=== PATIENT | female | born 1995 | race Caucasian/White ===

== ENCOUNTER 2016-05-15 21:25 | Inpatient (IN) | payer MEDICAID ==
[2016-05-15 23:01] LABS: CHLORIDE,CL 90 mmol/L (101-111); SODIUM,NA 125 mmol/L (135-145)
[2016-05-15] MEDS ORDERED: Albuterol 0.083% 2.5 MG/3 ML Neb Soln NEB ONE (23:44)
[2016-05-15] MEDS ORDERED: cefTRIAXone 1 GM in Sodium Chloride 0.9% 100 ML IV ONE (23:54)
[2016-05-16] MEDS ORDERED: Piperacillin/Tazobactam 3.375 GM in Sodium Chloride 0.9% 100 ML IV ONE (00:01)
[2016-05-16] MEDS ORDERED: Albuterol 0.083% 2.5 MG/3 ML Neb Soln NEB PRN (00:43)
[2016-05-16] MEDS ORDERED: Sodium Chloride 0.9% 10 ML Syringe FLUSH PRN (00:43)
[2016-05-16] MEDS ORDERED: Sodium Chloride 0.9% 1,000 ML IV ONE (00:44)
[2016-05-16] MEDS ORDERED: Levofloxacin/Dextrose 5%-Water 750 MG in Premix Bag 1 BAG IV SCH (00:45)
--- NOTE | 2016-05-16 01:01 | EDM.PDOC ---
ED HISTORY OF PRESENT ILLNESS - General Chief Complaint: Respiratory Problem Stated Complaint: FLEM,HARD TIME BREATHING O2 STATS LOW Time Seen by Provider: 05/15/16 21:35 Source of Information: Reports: Other (staff caregiver) - History of Present Illness INITIAL COMMENTS - FREE TEXT/NARRATIVE: ED via ambulance from [facility] . Patient repoted to have decreased oxygen levels today, more phlegm production. Suctioned paproximately 60cc this afternoon after using CPT machine. No recent fevers. Patient develpmentally disabled, minimal cmmunication skills Has not been responding to much this barry. Hx hydrocephaly, CP, seizure disorder, baclofen pump, Gtube, scoliosis with full spinal rods. - Related Data Allergies/ADRs: Allergies Allergy/AdvReac Type Severity Reaction Status Date / Time chloral hydrate Allergy Cannot Verified 05/15/16 21:58 Remember codeine Allergy Cannot Verified 05/15/16 21:58 Remember lactose-reduced food Allergy Cannot Verified 05/15/16 21:58 [From PediaSure] Remember pediatric nutrition with Allergy Cannot Verified 05/15/16 21:58 iron, lactose free Remember [From PediaSure] Home Meds: Home Meds Baclofen 15 ml PO Q4H PRN 05/15/16 [History] Baclofen [Lioresal Intrathecal] 275 mcg IT DAILY 05/15/16 [History] Cholecalciferol (Vitamin D3) [Vitamin D3] 2,000 units GTUBE DAILY 05/15/16 [ History] Diazepam 7.5 mg GTUBE ASDIRECTED PRN 05/15/16 [History] Lacosamide [Vimpat] 100 mg GTUBE BID 05/15/16 [History] Lanolin/Min Oil/NaCl/Pet,Wh [Lubriderm Daily Moisture Lotion] 0 ml TOP ASDIRECTED 05/15/16 [History] Levalbuterol HCl [Xopenex] 1.25 mg NEB ASDIRECTED PRN 05/15/16 [History] Levothyroxine Sodium [Levoxyl] 50 mcg GTUBE DAILY 05/15/16 [History] Mineral Oil/Petrolatum,White [Lubrifresh Pm Eye Ointment] 0.25 inch OP BEDTIME 05/15/16 [History] Polyethylene Glycol 3350 [Miralax] 17 gm GTUBE DAILY 05/15/16 [History] Potassium Chloride 20 meq GTUBE DAILY 05/15/16 [History] Propylene Glycol/Peg 400 [Systane 0.3-0.4% Eye Drops] 2 drop OP QID 05/15/16 [ History] levETIRAcetam [Levetiracetam] 600 mg GTUBE BID 05/15/16 [History] Past Medical History Respiratory History: Reports: Other (see below) Other Respiratory History: CPAP full mask at night. CPT vest. cough assist Gastrointestinal History: Reports: Chronic constipation, Other (see below) Other Gastrointestinal History: esophageal reflux Neurological History: Reports: Seizure, Other (see below) Other Neuro History: hydrocephalus Psychiatric History: Reports: Other (see below) Other Psychiatric History: profound intellectual disabilities, profound mental retardation Endocrine/Metabolic History: Reports: Hypothyroidism - Past Surgical History Neurological Surgical History: Reports: Scoliosis Social & Family History - Tobacco Use Smoking Status *Q: Never Smoker - Recreational Drug Use Recreational Drug Use: No ED ROS GENERAL - Review of Systems Review Of Systems: See Below Constitutional: Reports: malaise HEENT: Reports: No symptoms Respiratory: Reports: cough, sputum Cardiovascular: Reports: No symptoms GI/Abdominal: Reports: No symptoms : Reports: no symptoms Musculoskeletal: Reports: no symptoms Skin: Reports: no symptoms Neurological: Reports: no symptoms ED EXAM, GENERAL - Physical Exam Exam: See Below Exam Limited By: Physical impairment General Appearance: alert, mild distress Eye Exam: bilateral eye: EOMI Ears: normal external exam Nose: normal inspection Throat/Mouth: Normal inspection Head: atraumatic, normocephalic Neck: normal inspection Respiratory/Chest: decreased breath sounds, crackles (bilateral bases. diminished respiratory effort, thick green phlegm in mouth), other (sats drop low 80's room iar, increas 10L per mask 97%) Cardiovascular: normal peripheral pulses, regular rate, rhythm GI/Abdominal: normal bowel sounds Back Exam: decreased range of motion, muscle spasm Extremities: other (contracures upper and lower) Neurological: other (abnormal shaping on head. ) Skin Exam: Warm, Dry, Pallor Course - Vital Signs Last Recorded V/S: Last Vital Signs Temp 95.8 F 05/15/16 21:33 Pulse 52 L 05/15/16 21:33 Resp 28 H 05/15/16 21:33 BP 90/63 05/15/16 21:52 Pulse Ox 79 L 05/15/16 21:43 - Orders/Labs/Meds Orders: Active Orders 24 hr Category Date Time Status RT Aerosol Therapy [RC] ASDIRECTED Care 05/15/16 23:45 Active BASIC METABOLIC PANEL,BMP [CHEM] AM Lab 05/16/16 05:11 Ordered BASIC METABOLIC PANEL,BMP [CHEM] AM Lab 05/17/16 05:11 Ordered CBC WITH AUTO DIFF [HEME] AM Lab 05/16/16 05:11 Ordered CBC WITH AUTO DIFF [HEME] AM Lab 05/17/16 05:11 Ordered CULTURE BLOOD [BC] Stat Lab 05/15/16 22:19 Results CULTURE BLOOD [BC] Stat Lab 05/15/16 22:25 Results CULTURE SPUTUM + SMEAR [RM] Stat Lab 05/16/16 00:39 Uncollected UA W/MICROSCOPIC [URIN] Stat Lab 05/15/16 23:45 Uncollected Lacosamide [Vimpat] Med 05/16/16 09:00 Active 100 mg GTUBE BID Levofloxacin/Dextrose 5%-Water [Levaquin in D5W 750 MG/ Med 05/16/16 00:45 Active 150 ML] 750 mg Premix Bag 1 bag IV DAILY Levothyroxine [Synthroid] Med 05/16/16 09:00 Active 50 mcg GTUBE DAILY Mineral Oil/Petrolatum,White [Lubrifresh Pm Eye Med 05/16/16 21:00 Active Ointment] 0.25 inch OP BEDTIME Piperacillin/Tazobactam [Zosyn] 3.375 gm Med 05/16/16 07:00 Active Sodium Chloride 0.9% [Normal Saline] 100 ml IV Q6H Polyethylene Glycol 3350 [MiraLAX] Med 05/16/16 09:00 Active 17 gm GTUBE DAILY Potassium Chloride [Potassium Chloride Solution] Med 05/16/16 09:00 Active 20 meq GTUBE DAILY levETIRAcetam [Levetiracetam] Med 05/16/16 09:00 Active 600 mg GTUBE BID Blood Culture x2 Reflex Set [OM.PC] Stat Oth 05/15/16 21:51 Ordered Code Status [Resuscitation Status] Stat Resus Stat 05/16/16 00:02 Ordered Medication Orders Acetaminophen (Tylenol) 650 mg RECTAL Q4H PRN PRN Reason: Pain (mild 1-3) Last Admin: 05/16/16 01:53 Dose: 650 mg Albuterol (Proventil Neb Soln) 2.5 mg NEB Q2H PRN PRN Reason: shortness of breath/wheezing Albuterol/Ipratropium (Duoneb 3.0-0.5 Mg/3 Ml) 3 ml NEB QID COLE Enoxaparin Sodium (Lovenox) 30 mg SUBCUT DAILY COLE Sodium Chloride (Normal Saline) 1,000 mls @ 125 mls/hr IV .BOLUS ONE Stop: 05/16/16 08:43 Levofloxacin/Dextrose 750 mg/ (Premix) 150 mls @ 100 mls/hr IV DAILY COLE Piperacillin Sod/Tazobactam (Sod 3.375 gm/ Sodium Chloride) 100 mls @ 200 mls/ hr IV Q6H COLE Levothyroxine Sodium (Synthroid) 50 mcg GTUBE DAILY COLE Non-Formulary Medication (Lacosamide [Vimpat]) 100 mg GTUBE BID COLE Non-Formulary Medication (Mineral Oil/Petrolatum,White [Lubrifresh Pm Eye Ointment]) 0.25 inch OP BEDTIME COLE Non-Formulary Medication (Levetiracetam [Levetiracetam]) 600 mg GTUBE BID COLE Polyethylene Glycol (Miralax) 17 gm GTUBE DAILY COLE Potassium Chloride (Potassium Chloride Solution) 20 meq GTUBE DAILY COLE Sodium Chloride (Saline Flush) 10 ml FLUSH ASDIRECTED PRN PRN Reason: Keep Vein Open Labs: Laboratory Tests 05/15/16 05/15/16 05/15/16 Range/Units 22:25 22:25 22:25 WBC 10.9 H (5.0-10.0) 10^3/uL RBC 4.78 (4.2-5.4) 10^6/uL Hgb 14.6 (12.0-16.0) g/dL Hct 41.5 (37.0-47.0) % MCV 86.8 (80-100) fL MCH 30.5 (27.0-34.0) pg MCHC 35.2 H (33.0-35.0) g/dL Plt Count 103 L (150-450) 10^3/uL Neut % (Auto) 91.6 H (42.2-75.2) % Lymph % (Auto) 4.8 L (20.5-50.1) % [place] % (Auto) 3.5 (2-8) % Eos % (Auto) 0.0 L (1.0-3.0) % Baso % (Auto) 0.1 (0.0-1.0) % Sodium 125 L (135-145) mmol/L Potassium 4.5 (3.6-5.0) mmol/L Chloride 90 L (101-111) mmol/L Carbon Dioxide 25.0 (21.0-31.0) mmol/L Anion Gap 14.5 BUN 8 (7-18) mg/dL Creatinine 0.4 L (0.6-1.3) mg/dL Est Cr Clr Drug Dosing TNP Estimated GFR (MDRD) > 60 BUN/Creatinine Ratio 20.00 Glucose 133 H (74-105) mg/dL Lactic Acid 1.9 (0.5-2.2) mmol/L Calcium 9.4 (8.4-10.2) mg/dl Total Bilirubin 0.3 (0.2-1.0) mg/dL AST 42 (10-42) IU/L ALT 59 (10-60) IU/L Alkaline Phosphatase 122 H (42-121) IU/L Total Protein 6.4 L (6.7-8.2) g/dl Albumin 2.7 L (3.2-5.5) g/dl Globulin 3.7 Albumin/Globulin Ratio 0.73 Meds: Medications Generic Name Dose Route Start Last Admin Trade Name Freq PRN Reason Stop Dose Admin Acetaminophen 650 mg 05/16/16 00:43 05/16/16 01:53 Tylenol RECTAL 650 mg Q4H PRN Administration Pain (mild 1-3) Albuterol 2.5 mg 05/16/16 00:43 Proventil Neb Soln NEB Q2H PRN shortness of breath/wheezing Albuterol/Ipratropium 3 ml 05/16/16 09:00 Duoneb 3.0-0.5 Mg/3 Ml NEB QID COLE Enoxaparin Sodium 30 mg 05/16/16 09:00 Lovenox SUBCUT DAILY COLE Sodium Chloride 1,000 mls @ 125 mls/hr 05/16/16 00:44 Normal Saline IV 05/16/16 08:43 .BOLUS ONE Levofloxacin/Dextrose 750 mg/ 150 mls @ 100 mls/hr 05/16/16 00:45 Premix IV DAILY COLE Piperacillin Sod/Tazobactam 100 mls @ 200 mls/hr 05/16/16 07:00 Sod 3.375 gm/ Sodium Chloride IV Q6H COLE Levothyroxine Sodium 50 mcg 05/16/16 09:00 Synthroid GTUBE DAILY COLE Non-Formulary Medication 100 mg 05/16/16 09:00 Lacosamide [Vimpat] GTUBE BID COLE Non-Formulary Medication 0.25 inch 05/16/16 21:00 Mineral Oil/Petrolatum,White [Lubrifresh Pm Eye Ointment] OP BEDTIME COLE Non-Formulary Medication 600 mg 05/16/16 09:00 Levetiracetam [Levetiracetam] GTUBE BID COLE Polyethylene Glycol 17 gm 05/16/16 09:00 Miralax GTUBE DAILY COLE Potassium Chloride 20 meq 05/16/16 09:00 Potassium Chloride Solution GTUBE DAILY COLE Sodium Chloride 10 ml 05/16/16 00:43 Saline Flush FLUSH ASDIRECTED PRN Keep Vein Open Discontinued Medications Generic Name Dose Route Start Last Admin Trade Name Freq PRN Reason Stop Dose Admin Acetaminophen 650 mg 05/16/16 01:36 05/16/16 01:41 Tylenol PO 05/16/16 01:37 Not Given NOW ONE Albuterol 2.5 mg 05/15/16 23:44 05/16/16 00:05 Proventil Neb Soln NEB 05/15/16 23:45 2.5 mg ONETIME ONE Administration Ceftriaxone Sodium 1 gm/ 100 mls @ 200 mls/hr 05/15/16 23:54 05/16/16 00:06 Sodium Chloride IV 05/16/16 00:00 Not Given ONETIME ONE Piperacillin Sod/Tazobactam 100 mls @ 200 mls/hr 05/16/16 00:01 05/16/16 00: 16 Sod 3.375 gm/ Sodium Chloride IV 05/16/16 00:30 200 mls/hr ONETIME ONE Administration Vancomycin HCl 1 dose 05/16/16 00:42 Pharmacy To Dose - Vancomycin .XX 05/16/16 00:43 ONETIME ONE Departure - Departure Time of Disposition: 02:45 Disposition: Admitted As Inpatient 64 Condition: fair Clinical Impression: Hypoxemia, Hyponatremia, Seizure disorder, Congenital hydrocephaly, Developmental non-verbal disorder Pneumonia Qualifiers: Pneumonia type: due to unspecified organism Laterality: bilateral Lung location : lower lobe of lung Qualified Code(s): J18.9 - Pneumonia, unspecified organism Cerebral palsy Qualifiers: Cerebral palsy type: unspecified type Qualified Code(s): G80.9 - Cerebral palsy , unspecified - My Orders Last 24 Hours: My Active Orders 05/15/16 21:51 Blood Culture x2 Reflex Set [OM.PC] Stat 05/15/16 22:19 CULTURE BLOOD [BC] Stat 05/15/16 22:25 CULTURE BLOOD [BC] Stat 05/15/16 23:45 RT Aerosol Therapy [RC] ASDIRECTED UA W/MICROSCOPIC [URIN] Stat 05/16/16 00:02 Code Status [Resuscitation Status] Stat - Assessment/Plan Last 24 Hours: My Active Orders 05/15/16 21:51 Blood Culture x2 Reflex Set [OM.PC] Stat 05/15/16 22:19 CULTURE BLOOD [BC] Stat 05/15/16 22:25 CULTURE BLOOD [BC] Stat 05/15/16 23:45 RT Aerosol Therapy [RC] ASDIRECTED UA W/MICROSCOPIC [URIN] Stat 05/16/16 00:02 Code Status [Resuscitation Status] Stat
[2016-05-16] MEDS ORDERED: Acetaminophen 325 MG Tab PO ONE (01:36)
--- NOTE | 2016-05-16 01:36 | PCM.HP ---
H&P History of Present Illness - General Date of Service: 05/16/16 Admit Problem/Dx: Admission Diagnosis/Problem Admission Diagnosis/Problem Pneumonia Source of Information: Other - History of Present Illness Initial Comments - Free Text/Narative: patient is a 20-year-old mentally retarded lady, she cannot give a history. information from the chart, ER physician, detention caregiver. According to to the detention caregiver the patient was admitted to the detention about 6 months ago. She has a p.r.n. oxygen but normally she does not have to use it. She is usually saturating in the high 90s without it. She has a CPK machine that using frequently. She is n.p.o. on tube feeding and all medications are through her feeding tube. Past 24 hours the patient was noted to be more lethargic, cough weight yellow sputum production. No recent seizure although does have a history of seizure disorder. no sign of aspiration or vomiting She lives in a detention with 6 other clients, one of the mid to upper respiratory tract infection No fever noted The patient was brought into the emergency room and was noted to be hypoxemic, started on oxygen supplement. - Related Data Allergies/Adverse Reactions: Allergies Allergy/AdvReac Type Severity Reaction Status Date / Time chloral hydrate Allergy Cannot Verified 05/15/16 21:58 Remember codeine Allergy Cannot Verified 05/15/16 21:58 Remember lactose-reduced food Allergy Cannot Verified 05/15/16 21:58 [From PediaSure] Remember pediatric nutrition with Allergy Cannot Verified 05/15/16 21:58 iron, lactose free Remember [From PediaSure] Home Medications: Home Meds Baclofen 15 ml PO Q4H PRN 05/15/16 [History] Baclofen [Lioresal Intrathecal] 275 mcg IT DAILY 05/15/16 [History] Cholecalciferol (Vitamin D3) [Vitamin D3] 2,000 units GTUBE DAILY 05/15/16 [ History] Diazepam 7.5 mg GTUBE ASDIRECTED PRN 05/15/16 [History] Lacosamide [Vimpat] 100 mg GTUBE BID 05/15/16 [History] Lanolin/Min Oil/NaCl/Pet,Wh [Lubriderm Daily Moisture Lotion] 0 ml TOP ASDIRECTED 05/15/16 [History] Levalbuterol HCl [Xopenex] 1.25 mg NEB ASDIRECTED PRN 05/15/16 [History] Levothyroxine Sodium [Levoxyl] 50 mcg GTUBE DAILY 05/15/16 [History] Mineral Oil/Petrolatum,White [Lubrifresh Pm Eye Ointment] 0.25 inch OP BEDTIME 05/15/16 [History] Polyethylene Glycol 3350 [Miralax] 17 gm GTUBE DAILY 05/15/16 [History] Potassium Chloride 20 meq GTUBE DAILY 05/15/16 [History] Propylene Glycol/Peg 400 [Systane 0.3-0.4% Eye Drops] 2 drop OP QID 05/15/16 [ History] levETIRAcetam [Levetiracetam] 600 mg GTUBE BID 05/15/16 [History] Past Medical History Respiratory History: Reports: Other (see below) Other Respiratory History: CPAP full mask at night. CPT vest. cough assist Gastrointestinal History: Reports: Chronic constipation, Other (see below) Other Gastrointestinal History: esophageal reflux Neurological History: Reports: Seizure, Other (see below) Other Neuro History: hydrocephalus Psychiatric History: Reports: Other (see below) Other Psychiatric History: profound intellectual disabilities, profound mental retardation Endocrine/Metabolic History: Reports: Hypothyroidism - Past Surgical History Neurological Surgical History: Reports: Scoliosis Social & Family History - Tobacco Use Smoking Status *Q: Never Smoker - Recreational Drug Use Recreational Drug Use: No H&P Review of Systems - Review of Systems: Review Of Systems: Unable To Obtain (unable to obtain from the patient, mostly from the caregiver) General: Denies: fever, chills Pulmonary: Reports: sputum (yellow) Exam - Exam Exam: See Below - Vital Signs Vital Signs: Last Vital Signs Temp 35.4 C 05/15/16 21:33 Pulse 52 L 05/15/16 21:33 Resp 28 H 05/15/16 21:33 BP 90/63 05/15/16 21:52 Pulse Ox 79 L 05/15/16 21:43 Weight: 37.013 kg - Exam Quality Assessment: supplemental oxygen General: lethargic. No: cooperative Lungs: Decreased breath sounds, Rhonchi. No: Wheezing Cardiovascular: regular rate, regular rhythm. No: tachycardia Abdomen: normal bowel sounds, other (right-sided foreign object, feeding tube) Extremities: other (decreased muscle ) Skin: warm, dry Neuro Extensive - Mental Status: No: normal cognition Neuro Extensive - Motor, Sensory, Reflexes: total aphasia - Patient Data Lab Results last 24 hrs: chest x-ray per my reading shows possible basilar atelectasis versus infiltrate , dilated small bowel, CT head, CT abdomen is pending Result Diagrams: 05/15/16 22:25 05/15/16 22:25 *Q Meaningful Use (ADM) - VTE *Q VTE Criteria *Q: - Stroke *Q Stroke Criteria *Q: - AMI *Q AMI Criteria *Q: - Problem List (1) Pneumonia SNOMED Code(s): 654772848 ICD Code: J18.9 - PNEUMONIA, UNSPECIFIED ORGANISM Status: Acute Current Visit: Yes (2) Hyponatremia SNOMED Code(s): 97493406 ICD Code: E87.1 - HYPO-OSMOLALITY AND HYPONATREMIA Status: Acute Current Visit: Yes (3) Seizure disorder SNOMED Code(s): 420715282 ICD Code: G40.909 - EPILEPSY, UNSP, NOT INTRACTABLE, WITHOUT STATUS EPILEPTICUS Status: Acute Current Visit: Yes (4) Cerebral palsy SNOMED Code(s): 027317273 ICD Code: G80.9 - CEREBRAL PALSY, UNSPECIFIED Status: Acute Current Visit : Yes Problem List Initiated/Reviewed/Updated: Yes Orders Last 24hrs: Active Orders 24 hr Category Date Time Status Sodium Chloride 0.9% [Normal Saline] 1,000 ml Med 05/16/16 00:44 Active IV .BOLUS Medication Orders Acetaminophen (Tylenol) 650 mg RECTAL Q4H PRN PRN Reason: Pain (mild 1-3) Albuterol (Proventil Neb Soln) 2.5 mg NEB Q2H PRN PRN Reason: shortness of breath/wheezing Albuterol/Ipratropium (Duoneb 3.0-0.5 Mg/3 Ml) 3 ml NEB QID COLE Enoxaparin Sodium (Lovenox) 30 mg SUBCUT DAILY COLE Sodium Chloride (Normal Saline) 1,000 mls @ 125 mls/hr IV .BOLUS ONE Stop: 05/16/16 08:43 Levofloxacin/Dextrose 750 mg/ (Premix) 150 mls @ 100 mls/hr IV DAILY COLE Piperacillin Sod/Tazobactam (Sod 3.375 gm/ Sodium Chloride) 100 mls @ 200 mls/ hr IV Q6H COLE Levothyroxine Sodium (Synthroid) 50 mcg GTUBE DAILY COLE Non-Formulary Medication (Lacosamide [Vimpat]) 100 mg GTUBE BID COLE Non-Formulary Medication (Mineral Oil/Petrolatum,White [Lubrifresh Pm Eye Ointment]) 0.25 inch OP BEDTIME COLE Non-Formulary Medication (Levetiracetam [Levetiracetam]) 600 mg GTUBE BID COLE Polyethylene Glycol (Miralax) 17 gm GTUBE DAILY COLE Potassium Chloride (Potassium Chloride Solution) 20 meq GTUBE DAILY COLE Sodium Chloride (Saline Flush) 10 ml FLUSH ASDIRECTED PRN PRN Reason: Keep Vein Open Assessment/Plan Comment:: the patient is a 20-year-old with history of mental retardation, cerebral palsy , lives in detention with 6 others. 1. the patient was noted to have cough with yellow sputum production Concern for pneumonia, possible gram-negative organisms with the detention, possible aspiration. We'll obtain blood culture, sputum culture start Zosyn vancomycin levofloxacin 2.acute hypoxemic respiratory failure Secondary to pneumonia We will supplement oxygen as needed Use chest physical therapy Use nebulizers as needed 3. history of seizure disorder, cerebral palsy Treat with marzena gonzalez 4. hyponatremia The patient has a history of hypernatremia she is on tube feeding rate 400 cc 4 times a day freewater supplement This might be the reason for do hyponatremia For now hold the freewater supplement, tube feeding Recheck electrolytes in the morning 5. DVT prophylaxis with Lovenox 6. Code status is full code per detention players [employer] representative
[2016-05-16] MEDS: Acetaminophen 650 MG Supp RECTAL PRN ×4 (01:53→20:56)
[2016-05-16] MEDS: Piperacillin/Tazobactam 3.375 GM in Sodium Chloride 0.9% 100 ML IV SCH ×4 (06:42→23:59)
[2016-05-16] MEDS: Albuterol/Ipratropium 3.0-0.5 MG/3 ML Neb Soln NEB SCH ×4 (06:44→20:53)
[2016-05-16] MEDS: Levothyroxine 50 MCG Tab GTUBE SCH (06:44)
[2016-05-16 06:53] LABS: CHLORIDE,CL 94 mmol/L (101-111); SODIUM,NA 130 mmol/L (135-145)
[2016-05-16] MEDS ORDERED: Piperacillin/Tazobactam 3.375 GM in Sodium Chloride 0.9% 100 ML IV SCH (07:00)
[2016-05-16] MEDS ORDERED: Levothyroxine 50 MCG Tab GTUBE SCH (09:00)
[2016-05-16] MEDS ORDERED: Albuterol/Ipratropium 3.0-0.5 MG/3 ML Neb Soln NEB SCH (09:00)
[2016-05-16] MEDS: Polyethylene Glycol 3350 Powder 17 GM Packet GTUBE SCH (09:23)
[2016-05-16] MEDS: Enoxaparin 30 MG/0.3 ML Syringe SUBCUT SCH (09:23)
[2016-05-16] MEDS: Potassium Chloride 10% 20 MEQ/15 ML Soln 15 ML UD Cup GTUBE SCH (09:23)
[2016-05-16] MEDS: LEVETIRACETAM GTUBE SCH ×2 (13:35→20:54)
[2016-05-16] MEDS: LACOSAMIDE 100 MG GTUBE SCH ×2 (13:38→20:51)
[2016-05-16] MEDS: MINERAL OIL OP SCH (20:54)
[2016-05-16] MEDS: [UNRECOGNIZED DRUG - OTHER] OP SCH (20:54)
[2016-05-16] MEDS: PETROLATUM WHITE OP SCH (20:54)
[2016-05-17] MEDS: Levofloxacin/Dextrose 5%-Water 750 MG in Premix Bag 1 BAG IV SCH (03:11)
[2016-05-17] MEDS: Levothyroxine 50 MCG Tab GTUBE SCH (05:59)
[2016-05-17] MEDS: Piperacillin/Tazobactam 3.375 GM in Sodium Chloride 0.9% 100 ML IV SCH ×3 (06:08→18:21)
[2016-05-17] MEDS: Albuterol/Ipratropium 3.0-0.5 MG/3 ML Neb Soln NEB SCH ×4 (06:09→22:34)
[2016-05-17 06:51] LABS: CHLORIDE,CL 109 mmol/L (101-111); SODIUM,NA 142 mmol/L (135-145)
[2016-05-17] MEDS: Polyethylene Glycol 3350 Powder 17 GM Packet GTUBE SCH (09:40)
[2016-05-17] MEDS: LACOSAMIDE 100 MG GTUBE SCH ×2 (09:41→22:36)
[2016-05-17] MEDS: LEVETIRACETAM GTUBE SCH ×2 (09:42→22:37)
[2016-05-17] MEDS: Enoxaparin 30 MG/0.3 ML Syringe SUBCUT SCH ×2 (09:43→12:20)
[2016-05-17] MEDS: Potassium Chloride 10% 20 MEQ/15 ML Soln 15 ML UD Cup GTUBE SCH (09:44)
[2016-05-17] MEDS ORDERED: Acetaminophen Soln 160 MG/5 ML UD Cup PO PRN (11:08)
--- NOTE | 2016-05-17 13:50 | PN ---
DATE: 05/17/2016 HISTORY OF PRESENT ILLNESS: Ms. Miquel Tong is a 20-year-old female with a medical history significant for mental retardation, usp patient, admitted to the hospital with complaints of hypoxia and increasing shortness of breath, and is noted to have pneumonia, possible aspiration pneumonia, possible gram-negative pneumonia, and was started on broad-spectrum IV antibiotics. She was also noted to have hyponatremia at the time of admission. For the past 24 hours, the patient continues to be hypoxic. We will continue supplemental oxygen. We restarted the tube feeds. The patient has mental retardation, does not offer any complaints. She remains nonverbal. The patient was continued on chest physical therapy and nebulizer treatments. REVIEW OF SYSTEMS: Difficult to obtain from this patient. PHYSICAL EXAMINATION: Vital Signs: Temperature of 97.6, pulse of 83, blood pressure of 87/51, saturating at 95% on 4 L of nasal cannula oxygen, respiratory rate of 20. General Appearance: The patient has mental retardation, nonverbal. Respiratory System: Crepitations bilaterally. No wheeze. Cardiovascular system: S1 and S2 heard with normal intensity. Tachycardic. Abdomen: Soft. Bowel sounds positive. Feeding tube in place. Extremities: No edema. Neurology: Could not be completed at this time. MEDICATIONS: Include: 1. Tylenol 650 every 4 hours as needed for pain. 2. Albuterol 2.5 mL nebulizer q.2 hours as needed. 3. DuoNeb 3 mL nebulizer 4 times a day. 4. Lovenox 30 mg daily. 5. Levaquin daily. 6. Levothyroxine 50 mcg through G-tube. 7. Zosyn 3.375 g every 6 hours. 8. Potassium chloride 20 mEq through G-tube. 9. Vancomycin pharmacy to dose. LABORATORY DATA: Labs reviewed. WBC 8.2, hemoglobin 12.4, hematocrit 36.2, and platelet count 100. Sodium 142, potassium 4.1, chloride 109, bicarb 27, creatinine 0.5, glucose of 56. ASSESSMENT: 1. Pneumonia, possible gram-negative pneumonia. 2. Acute hypoxic respiratory failure secondary to pneumonia. 3. Hyponatremia. 4. Mental retardation. 5. History of seizure disorder, cerebral palsy. PLAN: 1. Pneumonia. The patient is noted to have bilateral infiltrates and has bilateral crepitations. The patient could have aspiration pneumonia versus gram-negative pneumonia. She is currently on broad-spectrum antibiotic with vancomycin, Levaquin, and Zosyn. Continue the same. Await for culture reports and titrate the antibiotics. 2. Acute hypoxic respiratory failure. This is mainly from her pneumonia process. She is currently on nebulizer treatment. We will increase the chest physical therapy to 3 times a day. We will have the respiratory therapy to help with suctions. We will also have her on Robinul to decrease the secretions for better pulmonary toileting, and we will closely follow. 3. History of seizures. Continue with antiepileptic medications with Keppra and Vimpat. 4. Hyponatremia, this seems to be resolved. We will decrease the free water to 300 mL 3 times a day. The patient was receiving 400 mL 4 times a day. 5. Hypotension. The patient continues to be hypotensive. We will continue free water and tube feeds and closely follow. Avoid any antihypertensive medication. 6. DVT prophylaxis. Continue with Lovenox for DVT prophylaxis. [facility] /[id number]
[2016-05-17] MEDS: Glycopyrrolate 0.2 MG/ML 2 ML SDV SUBCUT SCH ×2 (16:42→22:35)
[2016-05-17] MEDS: PETROLATUM WHITE OP SCH (22:37)
[2016-05-17] MEDS: [UNRECOGNIZED DRUG - OTHER] OP SCH (22:37)
[2016-05-17] MEDS: MINERAL OIL OP SCH (22:37)
[2016-05-18] MEDS: Piperacillin/Tazobactam 3.375 GM in Sodium Chloride 0.9% 100 ML IV SCH ×2 (00:50→08:17)
[2016-05-18] MEDS: Levofloxacin/Dextrose 5%-Water 750 MG in Premix Bag 1 BAG IV SCH (03:20)
[2016-05-18 06:55] LABS: CHLORIDE,CL 108 mmol/L (101-111); SODIUM,NA 142 mmol/L (135-145)
[2016-05-18] MEDS: Levothyroxine 50 MCG Tab GTUBE SCH (08:41)
[2016-05-18] MEDS: Albuterol/Ipratropium 3.0-0.5 MG/3 ML Neb Soln NEB SCH ×2 (08:41→10:43)
[2016-05-18] MEDS: Enoxaparin 30 MG/0.3 ML Syringe SUBCUT SCH (09:16)
[2016-05-18] MEDS: Polyethylene Glycol 3350 Powder 17 GM Packet GTUBE SCH (09:18)
[2016-05-18] MEDS: Potassium Chloride 10% 20 MEQ/15 ML Soln 15 ML UD Cup GTUBE SCH (09:19)
[2016-05-18] MEDS: Glycopyrrolate 0.2 MG/ML 2 ML SDV SUBCUT SCH (09:24)
[2016-05-18] MEDS: LACOSAMIDE 100 MG GTUBE SCH (09:27)
[2016-05-18] MEDS: LEVETIRACETAM GTUBE SCH (09:29)
--- NOTE | 2016-05-18 12:01 | DISCH ---
ADMITTING DIAGNOSES: 1. Pneumonia, possible Gram-negative pneumonia. 2. 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 3. Acute hypoxic respiratory failure. 4. Acute hyponatremia. DISCHARGE DIAGNOSES: 1. Pneumonia, requiring broad-spectrum IV antibiotics with possible Gram- negative pneumonia, possible aspiration pneumonia. 2. Acute hypoxic respiratory failure. 3. Acute hyponatremia, resolved. 4. History of seizure. HISTORY OF PRESENTING ILLNESS: Ms. Miquel Tong is a 20-year-old female with a medical history significant for cerebral palsy, resulting in mild mental retardation and a halfway resident, was admitted to the hospital with complaints of increasing shortness of breath and was noted to be in hypoxic respiratory failure at the time of admission. Further workup revealed evidence of pneumonia, possible Gram-negative pneumonia. The patient was started on broad-spectrum IV antibiotics. She was also noted to have acute hyponatremia at the time of admission, requiring fluid restriction and then once hyponatremia was corrected, we resumed her free water. She was on free water through the tube, we resumed at a lower dose of 300 mg three times a day, which has normalized her sodium. She was continued on broad-spectrum antibiotics. She was responding well to the treatment. We lost all her IV access line. Anesthesia was consulted and could not put a central line in this patient secondary to her body habitus. We are transporting the patient to higher level of care for possible consultation by Intervention Radiology to put a central line under fluoroscopy. She remained hemodynamically stable on this admission. She is discharged to [facility] in stable condition. DISCHARGE MEDICATIONS: 1. Tylenol 650 mg oral every 4 hours as needed for pain through the tube. 2. DuoNeb 3 mL nebulizer four times a day. 3. Baclofen 15 mL oral every four hours as needed. 4. Baclofen 275 mcg intrathecal daily. The patient has baclofen pump. 5. Vitamin D3 of 2000 units per gastric tube daily. 6. Diazepam 7.5 mg per tube as needed for seizures. 7. Lovenox 30 mg subcutaneous daily. 8. Glycopyrrolate 0.5 mg subcutaneous twice a day. 9. Vimpat 100 mg through the tube twice a day. 10.Xopenex 1.25 mg nebulizer as needed for dyspnea. 11.Levaquin 750 mg IV every 24 hours. 12.Levothyroxine 50 mcg per tube daily. 13.Zosyn 3.375 g every 6 hours. 14.Potassium chloride 20 mEq per tube daily. 15.Vancomycin 500 mg IV every 8 hourly. 16.Keppra 600 mg per gastric tube twice daily. PHYSICAL EXAMINATION: On the day of discharge: Vital Signs: Temperature of 97.4, pulse of 95, blood pressure 108/53, respiratory rate of 28, saturating at 95% on 4 L of oxygen. General Appearance: The patient has mental retardation, nonverbal, has contractures. Respiratory: Crepitations bilaterally. No wheeze. Abdomen: Soft. Bowel sounds positive. Nontender. G-tube in place. Extremities: Contractures noted. The patient was attempted a peripheral line on her leg and she has some erythema noted on the left lower extremity. Neurology: Evidence of contracture secondary to cerebral palsy. CONDITION ON ADMISSION: Poor. CONDITION ON DISCHARGE: Stable. DISPOSITION: Discharged to [facility] for further cares. DIET: The patient is n.p.o. She is just on tube feeds for diet. FOLLOWUP: Follow with primary care physician in one to two weeks post discharge from [facility]. Spent over 35 minutes of time in evaluating and treating this patient and coordination of cares in the discharge process. [facility] /[id number]
[2016-05-18 13:55] VITALS: BP 84/44
== END 2016-05-18 12:00 | DRG 193 ==
LOC: DL.ED 21:25 → EEVIPCON 05-16 00:43 → UNDOADMIN 05-16 00:43 → DL.MS 05-16 00:43 → UNDODISIN 05-18 12:00
PROVIDERS: ADMIT Internal Medicine; ATTEND Internal Medicine
DX: J18.9 Pneumonia, unspecified organism (principal); J96.01 Acute respiratory failure with hypoxia; E87.1 Hypo-osmolality and hyponatremia; Q03.9 Congenital hydrocephalus, unspecified; G80.9 Cerebral palsy, unspecified; G40.909 Epilepsy, unspecified, not intractable, without status epilepticus; E03.9 Hypothyroidism, unspecified; Z93.1 Gastrostomy status; F70 Mild intellectual disabilities; Z88.5 Allergy status to narcotic agent; Z88.8 Allergy status to other drugs, medicaments and biological substances; K59.09 Other constipation
CPT/HCPCS: 36410; 36415; 70450; 71010; 74176; 80048; 80053; 80202; 81001; 82533; 83605; 85025; 85027; 87040; 87804; 96365; 99285; A9270-GY; J1650; J1956; J2543; J3370; J3490; J7030; J7050; J7620-GY

== ENCOUNTER 2016-07-21 00:31 | Emergency (ER) | payer MEDICAID ==
[2016-07-21 01:29] LABS: CHLORIDE,CL 107 mmol/L (101-111); SODIUM,NA 139 mmol/L (135-145)
[2016-07-21] MEDS ORDERED: Albuterol 0.083% 2.5 MG/3 ML Neb Soln NEB ONE (01:32)
[2016-07-21 02:15] VITALS: BP 110/71
--- NOTE | 2016-07-21 02:27 | EDM.PDOC ---
ED HPI GENERAL MEDICAL PROBLEM - General Chief Complaint: Respiratory Problem Stated Complaint: FEVER, SPITTING UP GREEN PHLEM Time Seen by Provider: 07/21/16 00:45 Source of Information: Reports: Jail Records, Other History Limitations: Reports: Physical Impairment - History of Present Illness INITIAL COMMENTS - FREE TEXT/NARRATIVE: low grade temp this afternoon and barry at halfway 99 degrees, coughing and large amounts of thick green phlegm. Hx recent pneumonia in May initially admitted here then transferred to [facility] with hypoxia and unable to access IV site. Hx hydrocephalus, CP, MR hypothyroidism, and severe scoliosis. Bacolfen pump for spasticity. G tube feedings. Duration: Hour(s): - Related Data Allergies Allergy/AdvReac Type Severity Reaction Status Date / Time chloral hydrate Allergy Cannot Verified 07/21/16 00:51 Remember codeine Allergy Cannot Verified 07/21/16 00:51 Remember lactose-reduced food Allergy Cannot Verified 07/21/16 00:51 [From [employer]edia[employer]] Remember pediatric nutrition with Allergy Cannot Verified 07/21/16 00:51 iron, lactose free Remember [From [employer]] Home Meds: Home Meds Baclofen 15 ml PO Q4H PRN 05/15/16 [History] Baclofen [Lioresal Intrathecal] 275 mcg IT DAILY 05/15/16 [History] Cholecalciferol (Vitamin D3) [Vitamin D3] 2,000 units GTUBE DAILY 05/15/16 [ History] Diazepam 7.5 mg GTUBE ASDIRECTED PRN 05/15/16 [History] Lacosamide [Vimpat] 100 mg GTUBE BID 05/15/16 [History] Lanolin/Min Oil/NaCl/Pet,Wh [Lubriderm Daily Moisture Lotion] 0 ml TOP ASDIRECTED 05/15/16 [History] Levalbuterol HCl [Xopenex] 1.25 mg NEB ASDIRECTED PRN 05/15/16 [History] Levothyroxine Sodium [Levoxyl] 50 mcg GTUBE DAILY 05/15/16 [History] Polyethylene Glycol 3350 [Miralax] 17 gm GTUBE DAILY 05/15/16 [History] Potassium Chloride 20 meq GTUBE DAILY 05/15/16 [History] Propylene Glycol/Peg 400 [Systane 0.3-0.4% Eye Drops] 2 drop OP QID 05/15/16 [ History] levETIRAcetam [Levetiracetam] 600 mg GTUBE BID 05/15/16 [History] Acetaminophen [Tylenol Solution] 650 mg PO Q4H PRN #0 cup 05/18/16 [Rx] Albuterol/Ipratropium [DuoNeb 3.0-0.5 MG/3 ML] 3 ml NEB QIDRT neb 05/18/16 [Rx] Enoxaparin [Lovenox] 30 mg SUBCUT DAILY syringe 05/18/16 [Rx] Glycopyrrolate 0.5 mg SUBCUT BID sdv 05/18/16 [Rx] Levofloxacin/Dextrose 5%-Water [Levaquin in D5W 750 MG/150 ML] 750 mg IV Q24H bag 05/18/16 [Rx] Piperacillin/Tazobactam [Zosyn] 3.375 gm IV Q6H vial 05/18/16 [Rx] Vancomycin 500 mg IV Q8H sdv 05/18/16 [Rx] Lactose-Reduced Food/Fiber [Liquid Hope] 180 ml GTUBE QID 07/21/16 [History] Levalbuterol HCl [Xopenex] 1.25 mg IH Q8H PRN 07/21/16 [History] Mag Hydrox/Al Hydrox/Simeth [Almacone] 15 ml GTUBE DAILY 07/21/16 [History] Menthol/Zinc Oxide [Calmoseptine] 1 applic TOP Q2H 07/21/16 [History] Mineral Oil/Petrolatum,White [Lubrifresh Pm Eye Ointment] 0.25 inch OP BEDTIME 07/21/16 [History] Silver Sulfadiazine [Silvadene 1% Cream 20 GM] 1 applic TOP DAILY 07/21/16 [ History] Water 400 ml GTUBE Q6H 07/21/16 [History] Past Medical History HEENT History: Reports: Impaired Vision 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 CPT vest. cough assist Gastrointestinal History: Reports: Chronic Constipation Other Gastrointestinal History: esophageal reflux Genitourinary History: Reports: Urinary Incontinence Musculoskeletal History: Reports: Other (See Below) Other Musculoskeletal History: scoliosis Neurological History: Reports: Seizure, Other (See Below) Other Neuro History: non verbal Psychiatric History: Reports: Other (See Below) Other Psychiatric History: profound intellectual disabilities, profound mental retardation Endocrine/Metabolic History: Reports: Hypothyroidism Hematologic History: Reports: None Immunologic History: Reports: None Oncologic (Cancer) History: Reports: None - Past Surgical History GI Surgical History: Reports: Other (See Below) Social & Family History - Family History Family Medical History: Noncontributory - Tobacco Use Smoking Status *Q: Never Smoker Second Hand Smoke Exposure: No - Caffeine Use Caffeine Use: Reports: None - Recreational Drug Use Recreational Drug Use: No ED ROS GENERAL - Review of Systems Review Of Systems: ROS reveals no pertinent complaints other than HPI. ED EXAM, GENERAL - Physical Exam Exam: See Below Exam Limited By: No Limitations General Appearance: Alert, Mild Distress Eye Exam: Bilateral Eye: PERRL Ears: Normal External Exam, Normal TMs Nose: Normal Inspection Throat/Mouth: Other (thick green phlegm pooled in oral cavity., cleared, white patches to tongue, inner posterior cheek left and roof of mouth) Head: Atraumatic. No: Normocephalic (mild deformity) Neck: No: Full Range of Motion Respiratory/Chest: Decreased Breath Sounds, Rhonchi ( loer right, coarse cronchial clears with intermittent strong cough.) Cardiovascular: Regular Rate, Rhythm, Tachycardia GI/Abdominal: Normal Bowel Sounds, Soft Extremities: Normal Inspection. No: Pedal Edema Neurological: Alert, Other (preexisting deficit) Skin Exam: Warm, Dry, Intact, Normal Color Course - Vital Signs Last Recorded V/S: Last Vital Signs Temp 96.4 F 07/21/16 00:46 Pulse 116 H 07/21/16 02:14 Resp 16 07/21/16 02:14 BP 110/71 07/21/16 02:14 Pulse Ox 91 L 07/21/16 02:14 - Orders/Labs/Meds Orders: Active Orders 24 hr Category Date Time Status RT Aerosol Therapy [RC] ASDIRECTED Care 07/21/16 01:33 Active CXR [Chest 1V Frontal] [CR] Urgent Exams 07/21/16 00:52 Taken CULTURE BLOOD [BC] Stat Lab 07/21/16 01:00 Received CULTURE BLOOD [BC] Stat Lab 07/21/16 01:04 Received Blood Culture x2 Reflex Set [OM.PC] Stat Oth 05/14/17 00:52 Ordered Labs: Laboratory Tests 07/21/16 07/21/16 07/21/16 Range/Units 01:00 01:00 01:00 WBC 14.2 H (5.0-10.0) 10^3/uL RBC 4.62 (4.2-5.4) 10^6/uL Hgb 13.3 (12.0-16.0) g/dL Hct 41.3 (37.0-47.0) % MCV 89.4 (80-100) fL MCH 28.8 (27.0-34.0) pg MCHC 32.2 L (33.0-35.0) g/dL Plt Count 272 (150-450) 10^3/uL Neut % (Auto) 86.4 H (42.2-75.2) % Lymph % (Auto) 7.9 L (20.5-50.1) % Story % (Auto) 5.5 (2-8) % Eos % (Auto) 0.1 L (1.0-3.0) % Baso % (Auto) 0.1 (0.0-1.0) % Sodium 139 (135-145) mmol/L Potassium 3.4 L (3.6-5.0) mmol/L Chloride 107 (101-111) mmol/L Carbon Dioxide 27.0 (21.0-31.0) mmol/L Anion Gap 8.4 BUN 14 (7-18) mg/dL Creatinine 0.5 L (0.6-1.3) mg/dL Est Cr Clr Drug Dosing 99.84 mL/min Estimated GFR (MDRD) > 60 BUN/Creatinine Ratio 28.00 Glucose 162 H (74-105) mg/dL Lactic Acid 1.1 (0.5-2.2) mmol/L Calcium 9.7 (8.4-10.2) mg/dl Total Bilirubin 0.3 (0.2-1.0) mg/dL AST 39 (10-42) IU/L ALT 64 H (10-60) IU/L Alkaline Phosphatase 136 H (42-121) IU/L Total Protein 7.6 (6.7-8.2) g/dl Albumin 3.6 (3.2-5.5) g/dl Globulin 4.0 Albumin/Globulin Ratio 0.90 Amylase 73 (28-100) U/L Lipase 44 (22-51) U/L Meds: Medications Discontinued Medications Generic Name Dose Route Start Last Admin Trade Name Freq PRN Reason Stop Dose Admin Albuterol 2.5 mg 07/21/16 01:32 07/21/16 01:37 Proventil Neb Soln NEB 07/21/16 01:33 2.5 mg ONETIME ONE Administration - Re-Assessments/Exams Free Text/Narrative Re-Assessment/Exam: TC labs and hx reviewed with Dr. Montero, recommendation for outpatient management and if worsen of symptoms return for reevaluation. Discussed with staff member present recommended treatment including suctioning. Per director of program management only licensed persons are able to suction. Certified staff not allowed to operate suction equipment. Certified staff may use a bulb syringe for oral suction to clear secretions and mucus. Order written to allow certified staff to use bulb syringe as no previous order available allowing this. Departure - Departure Time of Disposition: 02:44 Disposition: DC/Tfer to [facility] Condition: fair Clinical Impression: Oral candidiasis, Congenital hydrocephaly, Developmental non-verbal disorder, Seizure disorder URI (upper respiratory infection) Qualifiers: URI type: unspecified URI Qualified Code(s): J06.9 - Acute upper respiratory infection, unspecified Cerebral palsy Qualifiers: Cerebral palsy type: unspecified type Qualified Code(s): G80.9 - Cerebral palsy , unspecified - Discharge Information Instructions: Upper Respiratory Infection, Adult, [id number], Thrush, Adult Forms: ED Department Discharge Additional Instructions: oral suction as needed with bulb syringe, rinse bulb after each use continue current medications xopenex neb every 4 hours as needed augmentin 400/57/5ml give 12.5ml twice daily for 10 days Nystatin 100,000u/ml 2ml swabbed around roof of mouth, tongue and cheeks 4 times daily for 7 days # 60 ml tylenol per standing order for fever follow up in clinic this week for recheck and repeat CXR Return to ED if temp greater than 101, difficulty breathing or O2 sats decreasing. Oxygen as needed to maintain saturation greater than 90% - My Orders Last 24 Hours: My Active Orders 07/21/16 00:52 CXR [Chest 1V Frontal] [CR] Urgent Blood Culture x2 Reflex Set [OM.PC] Stat 07/21/16 01:00 CULTURE BLOOD [BC] Stat 07/21/16 01:04 CULTURE BLOOD [BC] Stat 07/21/16 01:33 RT Aerosol Therapy [RC] ASDIRECTED - Assessment/Plan Last 24 Hours: My Active Orders 07/21/16 00:52 CXR [Chest 1V Frontal] [CR] Urgent Blood Culture x2 Reflex Set [OM.PC] Stat 07/21/16 01:00 CULTURE BLOOD [BC] Stat 07/21/16 01:04 CULTURE BLOOD [BC] Stat 07/21/16 01:33 RT Aerosol Therapy [RC] ASDIRECTED
[2016-07-21] MEDS ORDERED: cefTRIAXone 1 GM in Sodium Chloride 0.9% 50 ML IV ONE (02:51)
[2016-07-21] MEDS ORDERED: Nystatin Susp 100,000 Unit/ML 5 ML UD Cup PO ONE (03:09)
[2016-07-21] MEDS ORDERED: Nystatin Susp 100,000 Unit/ML 5 ML UD Cup ONE (03:09)
[2016-07-21] MEDS ORDERED: Amoxicillin/Clavulanate K 400-57 MG/5 ML Susp 100 ML Bottle PO ONE (03:10)
[2016-07-21] MEDS ORDERED: Amoxicillin/Clavulanate K 400-57 MG/5 ML Susp 100 ML Bottle ONE (03:10)
== END 2016-07-21 03:38 ==
LOC: DL.ED 00:31
DX: G40.909 Epilepsy, unspecified, not intractable, without status epilepticus (principal); G80.9 Cerebral palsy, unspecified; J06.9 Acute upper respiratory infection, unspecified; Q03.9 Congenital hydrocephalus, unspecified; B37.0 Candidal stomatitis; Z88.8 Allergy status to other drugs, medicaments and biological substances; Z79.899 Other long term (current) drug therapy; E03.9 Hypothyroidism, unspecified; F80.9 Developmental disorder of speech and language, unspecified
CPT/HCPCS: 36415; 71010; 80053; 82150; 83605; 83690; 85025; 87040; 96365; 99284; J0696; J7050; J7620; A9270-GY

== ENCOUNTER 2017-03-09 10:12 | Emergency (ER) | payer MEDICAID ==
[2017-03-09 11:02] VITALS: BP 102/64
[2017-03-09] MEDS ORDERED: Sodium Chloride 0.9% 1,000 ML IV ONE (11:13)
[2017-03-09] MEDS ORDERED: Sodium Chloride 0.9% 10 ML Syringe FLUSH PRN (11:13)
[2017-03-09] MEDS ORDERED: Albuterol/Ipratropium 3.0-0.5 MG/3 ML Neb Soln NEB ONE (11:16)
--- NOTE | 2017-03-09 11:22 | EDM.PDOC ---
ED HPI GENERAL MEDICAL PROBLEM - General Chief Complaint: General Stated Complaint: FROM CUSTODIAL Time Seen by Provider: 03/09/17 10:58 Source of Information: Reports: RN, RN Notes Reviewed, Other (staff from retirement) - History of Present Illness INITIAL COMMENTS - FREE TEXT/NARRATIVE: Pt presents to ER per [facility] from the retirement she lives in. Staff states the pt receives tube feedings, and on she vomited. She has vomited x2 since that time as well. Pt is unable to regulate her temperature and staff states she runs 95-96 degrees normally and since her temperature has ranged from 98-100. Staff have been medicating her with ibuprofen for the temperature. Staff states she is unsure when the "gurgling" lung sounds began but she noticed it this morning. Staff also states she feels the patient skin color is yellow tinged. Onset: Gradual Onset Date: 03/06/17 Duration: Getting Worse - Related Data Allergies Allergy/AdvReac Type Severity Reaction Status Date / Time chloral hydrate Allergy Drowsiness Verified 03/09/17 13:00 codeine Allergy Drowsiness Verified 03/09/17 13:00 lactose-reduced food Allergy Other Verified 03/09/17 13:00 [From [employer]] pediatric nutrition with Allergy Other Verified 03/09/17 13:00 iron, lactose free [From [employer]] Home Meds: Home Meds Baclofen 15 ml PO Q4H PRN 05/15/16 [History] Baclofen [Lioresal Intrathecal] 275 mcg IT DAILY 05/15/16 [History] Lacosamide [Vimpat] 100 mg GTUBE BID 05/15/16 [History] Lanolin/Min Oil/NaCl/Pet,Wh [Lubriderm Daily Moisture Lotion] 0 ml TOP ASDIRECTED 05/15/16 [History] Levothyroxine Sodium [Levoxyl] 50 mcg GTUBE DAILY 05/15/16 [History] Polyethylene Glycol 3350 [Miralax] 17 gm GTUBE DAILY 05/15/16 [History] Potassium Chloride 20 meq GTUBE DAILY 05/15/16 [History] Propylene Glycol/Peg 400 [Systane 0.3-0.4% Eye Drops] 2 drop OP QID 05/15/16 [ History] levETIRAcetam [Levetiracetam] 600 mg GTUBE BID 05/15/16 [History] Levalbuterol HCl [Xopenex] 1.25 mg IH Q8H PRN 07/21/16 [History] Mag Hydrox/Al Hydrox/Simeth [Almacone] 15 ml GTUBE DAILY 07/21/16 [History] Menthol/Zinc Oxide [Calmoseptine] 1 applic TOP Q2H PRN 07/21/16 [History] Mineral Oil/Petrolatum,White [Lubrifresh Pm Eye Ointment] 0.25 inch OP BEDTIME 07/21/16 [History] Water 260 ml GTUBE Q6H 07/21/16 [History] Diazepam [Diastat] 7.5 mg RECTAL ONETIME 03/09/17 [History] Lactose-Reduced Food/Fiber [Jevity 1 Ajay Liquid] 300 ml GTUBE BID 03/09/17 [ History] Lactose-Reduced Food/Fiber [Jevity] 250 ml GTUBE BID 03/09/17 [History] Past Medical History HEENT History: Reports: Impaired Vision 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 CPT vest. cough assist Gastrointestinal History: Reports: Chronic Constipation Other Gastrointestinal History: esophageal reflux Genitourinary History: Reports: Urinary Incontinence Musculoskeletal History: Reports: Other (See Below) Other Musculoskeletal History: scoliosis Neurological History: Reports: Seizure, Other (See Below) Other Neuro History: non verbal Psychiatric History: Reports: Other (See Below) Other Psychiatric History: profound intellectual disabilities, profound mental retardation Endocrine/Metabolic History: Reports: Hypothyroidism Hematologic History: Reports: None Immunologic History: Reports: None Oncologic (Cancer) History: Reports: None - Past Surgical History GI Surgical History: Reports: Other (See Below) Social & Family History - Family History Family Medical History: Noncontributory - Tobacco Use Smoking Status *Q: Never Smoker Second Hand Smoke Exposure: No - Caffeine Use Caffeine Use: Reports: None - Recreational Drug Use Recreational Drug Use: No ED ROS GENERAL - Review of Systems Review Of Systems: ROS reveals no pertinent complaints other than HPI. ED EXAM, GENERAL - Physical Exam Exam: See Below Exam Limited By: No Limitations General Appearance: Alert, Other (Developmentally disabled, nonverbal) Eye Exam: Bilateral Eye: Abnormal EOM, Conjunctival Injection, PERRL (sluggish, 3) Ears: Normal External Exam Ear Exam: Bilateral Ear: Erythema Nose: Normal Inspection Throat/Mouth: Normal Inspection, No Airway Compromise Head: Atraumatic, Normocephalic Neck: Normal Inspection, Supple, Non-Tender, Limited Range of Motion Respiratory/Chest: Respiratory Distress, Decreased Breath Sounds, Rhonchi ( throughout) Cardiovascular: Normal Peripheral Pulses, Regular Rate, Rhythm, No Edema, No Gallop, No JVD, No Murmur, No Rub Peripheral Pulses: 2+: Radial (L), Radial (R), Dorsalis Pedis (L), Dorsalis Pedis (R) GI/Abdominal: Normal Bowel Sounds, Soft, Non-Tender, No Organomegaly, No Distention, No Abnormal Bruit, No Mass (Female) Exam: Deferred Rectal (Female) Exam: Deferred Back Exam: Normal Inspection, Decreased Range of Motion Extremities: Limited Range of Motion Neurological: Alert, Abnormal Reflexes, Sensory/Motor Deficit, Other (Non verbal , responds to pain) Psychiatric: Normal Affect, Normal Mood Skin Exam: Warm, Dry, Intact Lymphatic: No Adenopathy Course - Vital Signs Last Recorded V/S: Last Vital Signs Temp 97 F 03/09/17 11:00 Pulse 105 H 03/09/17 11:49 Resp 32 H 03/09/17 11:00 BP 102/64 03/09/17 11:00 Pulse Ox 93 L 03/09/17 11:00 - Orders/Labs/Meds Orders: Active Orders 24 hr Category Date Time Status Insert Fish Catheter [Insert Urinary Catheter] [OM.PC] Care 03/09/17 11:15 Ordered Q24H Peripheral IV Care [RC] . DIRECTED Care 03/09/17 11:14 Active RT Aerosol Therapy [RC] ASDIRECTED Care 03/09/17 11:16 Active Urinary Catheter Assessment [RC] ASDIRECTED Care 03/09/17 11:15 Active CULTURE BLOOD [BC] Stat Lab 03/09/17 11:23 Received CULTURE BLOOD [BC] Stat Lab 03/09/17 11:30 Results CULTURE STREP A CONFIRMATION [] Stat Lab 03/09/17 12:10 Results STREP SCRN A RAPID W CULT CONF [] Stat Lab 03/09/17 12:10 Results Sodium Chloride 0.9% [Saline Flush] Med 03/09/17 11:13 Active 10 ml FLUSH ASDIRECTED PRN Blood Culture x2 Reflex Set [OM.PC] Stat Ot 03/09/17 11:11 Ordered Peripheral IV Insertion Adult [OM.PC] Stat Ot 03/09/17 11:11 Ordered Medication Orders Sodium Chloride (Saline Flush) 10 ml FLUSH ASDIRECTED PRN PRN Reason: Keep Vein Open Labs: Laboratory Tests 03/09/17 03/09/17 03/09/17 Range/Units 11:23 11:23 11:23 WBC 35.3 H* (5.0-10.0) 10^3/uL RBC 4.29 (4.2-5.4) 10^6/uL Hgb 13.1 (12.0-16.0) g/dL Hct 39.3 (37.0-47.0) % MCV 91.6 (80-100) fL MCH 30.5 (27.0-34.0) pg MCHC 33.3 (33.0-35.0) g/dL Plt Count 218 (150-450) 10^3/uL Neut % (Auto) 86.7 H (42.2-75.2) % Lymph % (Auto) 4.0 L (20.5-50.1) % Chaves % (Auto) 9.1 H (2-8) % Eos % (Auto) 0.1 L (1.0-3.0) % Baso % (Auto) 0.1 (0.0-1.0) % Add Manual Diff Yes Neutrophils % (Manual) 59 (42-75) % Band Neutrophils % 28 % Lymphocytes % (Manual) 3 L (20-50) % Monocytes % (Manual) 8 (2-8) % Eosinophils % (Manual) 1 (1-3) % Metamyelocytes % 1 Vacuolated Monocytes Few Toxic Granulation 1+ slight Dohle Bodies Few Platelet Estimate Adequate Giant Platelets Few Sodium 133 L (135-145) mmol/L Potassium 4.0 (3.6-5.0) mmol/L Chloride 96 L (101-111) mmol/L Carbon Dioxide 27.0 (21.0-31.0) mmol/L Anion Gap 14.0 BUN 13 (7-18) mg/dL Creatinine 0.4 L (0.6-1.3) mg/dL Est Cr Clr Drug Dosing TNP Estimated GFR (MDRD) > 60 BUN/Creatinine Ratio 32.50 Glucose 119 H (74-105) mg/dL Lactic Acid 1.6 (0.5-2.2) mmol/L Calcium 9.3 (8.4-10.2) mg/dl Total Bilirubin 4.3 H (0.2-1.0) mg/dL AST 92 H (10-42) IU/L ALT 180 H (10-60) IU/L Alkaline Phosphatase 192 H (42-121) IU/L Total Protein 7.8 (6.7-8.2) g/dl Albumin 3.0 L (3.2-5.5) g/dl Globulin 4.8 Albumin/Globulin Ratio 0.63 Amylase (28-100) U/L Lipase (22-51) U/L Urine Color (YELLOW) Urine Appearance (CLEAR) Urine pH (5.0-9.0) Ur Specific Butler (1.005-1.030) Urine Protein (NEGATIVE) Urine Glucose (UA) (NEGATIVE) Urine Ketones (NEGATIVE) Urine Occult Blood (NEGATIVE) Urine Nitrite (NEGATIVE) Urine Bilirubin (NEGATIVE) Urine Urobilinogen (0.2-1.0) mg/dL Ur Leukocyte Esterase (NEGATIVE) Urine RBC /HPF Urine WBC (0-5/HPF) /HPF Ur Epithelial Cells /HPF Amorphous Sediment (0/HPF) /HPF Urine Bacteria (0-FEW/HPF) /HPF Urine Mucus /LPF 03/09/17 03/09/17 Range/Units 11:23 11:39 WBC (5.0-10.0) 10^3/uL RBC (4.2-5.4) 10^6/uL Hgb (12.0-16.0) g/dL Hct (37.0-47.0) % MCV (80-100) fL MCH (27.0-34.0) pg MCHC (33.0-35.0) g/dL Plt Count (150-450) 10^3/uL Neut % (Auto) (42.2-75.2) % Lymph % (Auto) (20.5-50.1) % Chaves % (Auto) (2-8) % Eos % (Auto) (1.0-3.0) % Baso % (Auto) (0.0-1.0) % Add Manual Diff Neutrophils % (Manual) (42-75) % Band Neutrophils % % Lymphocytes % (Manual) (20-50) % Monocytes % (Manual) (2-8) % Eosinophils % (Manual) (1-3) % Metamyelocytes % Vacuolated Monocytes Toxic Granulation Dohle Bodies Platelet Estimate Giant Platelets Sodium (135-145) mmol/L Potassium (3.6-5.0) mmol/L Chloride (101-111) mmol/L Carbon Dioxide (21.0-31.0) mmol/L Anion Gap BUN (7-18) mg/dL Creatinine (0.6-1.3) mg/dL Est Cr Clr Drug Dosing Estimated GFR (MDRD) BUN/Creatinine Ratio Glucose (74-105) mg/dL Lactic Acid (0.5-2.2) mmol/L Calcium (8.4-10.2) mg/dl Total Bilirubin (0.2-1.0) mg/dL AST (10-42) IU/L ALT (10-60) IU/L Alkaline Phosphatase (42-121) IU/L Total Protein (6.7-8.2) g/dl Albumin (3.2-5.5) g/dl Globulin Albumin/Globulin Ratio Amylase 28 (28-100) U/L Lipase 28 (22-51) U/L Urine Color Yellow (YELLOW) Urine Appearance Clear (CLEAR) Urine pH 7.0 (5.0-9.0) Ur Specific Butler 1.010 (1.005-1.030) Urine Protein 30 H (NEGATIVE) Urine Glucose (UA) Negative (NEGATIVE) Urine Ketones Negative (NEGATIVE) Urine Occult Blood Negative (NEGATIVE) Urine Nitrite Negative (NEGATIVE) Urine Bilirubin Moderate H (NEGATIVE) Urine Urobilinogen 0.2 (0.2-1.0) mg/dL Ur Leukocyte Esterase Negative (NEGATIVE) Urine RBC 0-5 /HPF Urine WBC 0-5 (0-5/HPF) /HPF Ur Epithelial Cells Few /HPF Amorphous Sediment Few (0/HPF) /HPF Urine Bacteria Few (0-FEW/HPF) /HPF Urine Mucus Rare /LPF Meds: Medications Generic Name Dose Route Start Last Admin Trade Name Freq PRN Reason Stop Dose Admin Sodium Chloride 10 ml 03/09/17 11:13 Saline Flush FLUSH ASDIRECTED PRN Keep Vein Open Discontinued Medications Generic Name Dose Route Start Last Admin Trade Name Freq PRN Reason Stop Dose Admin Albuterol/Ipratropium 3 ml 03/09/17 11:16 03/09/17 11:48 Duoneb 3.0-0.5 Mg/3 Ml NEB 03/09/17 11:17 3 ml ONETIME ONE Administration Sodium Chloride 1,000 mls @ 999 mls/hr 03/09/17 11:13 03/09/17 12:34 Normal Saline IV 03/09/17 12:13 999 mls/hr .BOLUS ONE Administration Levofloxacin/Dextrose 500 mg/ 100 mls @ 100 mls/hr 03/09/17 11:49 03/09/17 12 :35 Premix IV 03/09/17 12:48 100 mls/hr ONETIME ONE Administration Lorazepam 1 mg 03/09/17 13:20 03/09/17 13:24 Ativan IVPUSH 03/09/17 13:21 1 mg ONETIME ONE Administration - Re-Assessments/Exams Free Text/Narrative Re-Assessment/Exam: 03/09/17 13:37 The patients records show DNR/Comfort cares, but to call the guardian with any medical needs. The Guardian (Padmini) was contacted. The patient was discussed with the guardian, and she feels she would like the patient to receive antibiotics, fluids, and be evaluated in [place] for possible sepsis/surgical consult. Departure - Departure Time of Disposition: Disposition: DC/Tfer to [facility] Condition: Poor, Serious Clinical Impression: Elevated liver enzymes Leukocytosis, unspecified Qualifiers: Leukocytosis type: unspecified Qualified Code(s): D72.829 - Elevated white blood cell count, unspecified Pneumonia Qualifiers: Pneumonia type: due to unspecified organism Laterality: bilateral Lung location : lower lobe of lung Qualified Code(s): J18.9 - Pneumonia, unspecified organism - Discharge Information Referrals: PCP,Unobtain [Primary Care Provider] - Forms: ED Department Discharge, Interfacility Transfer EMTALA - My Orders Last 24 Hours: My Active Orders 03/09/17 11:11 Blood Culture x2 Reflex Set [OM.PC] Stat Peripheral IV Insertion Adult [OM.PC] Stat 03/09/17 11:13 Sodium Chloride 0.9% [Saline Flush] 10 ml FLUSH ASDIRECTED PRN 03/09/17 11:14 Peripheral IV Care [RC] . DIRECTED 03/09/17 11:15 Insert Fish Catheter [Insert Urinary Catheter] [OM.PC] Q24H Urinary Catheter Assessment [RC] ASDIRECTED 03/09/17 11:16 RT Aerosol Therapy [RC] ASDIRECTED 03/09/17 11:23 CULTURE BLOOD [BC] Stat 03/09/17 11:30 CULTURE BLOOD [BC] Stat 03/09/17 12:10 CULTURE STREP A CONFIRMATION [RM] Stat STREP SCRN A RAPID W CULT CONF [RM] Stat - Assessment/Plan Last 24 Hours: My Active Orders 03/09/17 11:11 Blood Culture x2 Reflex Set [OM.PC] Stat Peripheral IV Insertion Adult [OM.PC] Stat 03/09/17 11:13 Sodium Chloride 0.9% [Saline Flush] 10 ml FLUSH ASDIRECTED PRN 03/09/17 11:14 Peripheral IV Care [RC] . DIRECTED 03/09/17 11:15 Insert Fish Catheter [Insert Urinary Catheter] [OM.PC] Q24H Urinary Catheter Assessment [RC] ASDIRECTED 03/09/17 11:16 RT Aerosol Therapy [RC] ASDIRECTED 03/09/17 11:23 CULTURE BLOOD [BC] Stat 03/09/17 11:30 CULTURE BLOOD [BC] Stat 03/09/17 12:10 CULTURE STREP A CONFIRMATION [RM] Stat STREP SCRN A RAPID W CULT CONF [RM] Stat
[2017-03-09] MEDS ORDERED: Levofloxacin/Dextrose 5%-Water 500 MG in Premix Bag 1 BAG IV ONE (11:49)
[2017-03-09 11:57] LABS: CHLORIDE,CL 96 mmol/L (101-111); SODIUM,NA 133 mmol/L (135-145)
[2017-03-09] MEDS ORDERED: LORazepam 2 MG/ML Syringe IVPUSH ONE (13:20)
== END 2017-03-09 14:41 ==
LOC: DL.ED 10:12
DX: J18.9 Pneumonia, unspecified organism (principal); R74.8 Abnormal levels of other serum enzymes; D72.829 Elevated white blood cell count, unspecified; E03.9 Hypothyroidism, unspecified; Z88.5 Allergy status to narcotic agent; Z88.8 Allergy status to other drugs, medicaments and biological substances; Z79.899 Other long term (current) drug therapy
CPT/HCPCS: 36415; 71010; 80053; 81001; 82150; 83605; 83690; 85025; 87040; 87081; 87430; 87804; 94640; 96361; 96365; 96375; 99285; J1956; J2060; J7030; 51702; 87077; 87186